=== PATIENT | female | born 1970 | race African-American/Black ===

== ENCOUNTER 2018-01-15 06:12 | Emergency (ER) | payer OTHER ==
[~2018-01-15] VITALS: Ht 167.6 cm; Wt 73.9 kg
--- NOTE | 2018-01-15 06:27 | NUR ---
Patient AAOx4. Able to speak in complete sentences, responsive to verbal and tactile stimuli. Able to make needs know. Speech is clear. Able to comprehend and follow directions. Patient comes into the ER from home with c/o Left eye pain. Patient states she had Lasik eye surgery to both eyes 3 weeks ago. Patient states at 0200 she developed pain after turning on a bright light above her mirror a few hours earlier. Patient states she has had severe pain since this incident, but only in her left eye. Patient denies injury/trauma/foreign object exposure to her eye at this time. She presents to the ER unable to open her left eye due to stated pain. Patient states she is from [place], she contacted her PMD (Opthalmologist), and was instructed to come to the ER for fruther evaluation. Respirations even and unlabored. no SOB or congestion noted. no cough noted. patient denies fever/chills/chest pain/nausea/vomiting at this time. No cardiovascular distress noted. no GI/ distress noted. Call light is within reach. Bed in lowest position, wheels locked. Patient able to ambulate with stable gait, independent in all function. All patient needs attended and met.
--- NOTE | 2018-01-15 06:31 | NUR ---
SUBHASH POP at bedside for patient evaluation.
--- NOTE | 2018-01-15 07:01 | NUR ---
Patient discharged to home in stable conditon. Written and verbal after care instructions given. Patient verbalizes understanding of instructions. Ambulated from ER with stable gait. All belongings with patient.
[2018-01-15 07:02] VITALS: BP 129/79
== END 2018-01-15 07:03 | disposition other institution (70) ==
LOC: ER 06:19
DX: H57.12 Ocular pain, left eye (principal)
CPT/HCPCS: A4663